=== PATIENT | female | born 1955 | race Caucasian/White ===

== ENCOUNTER 2020-03-09 07:36 | Observation (INO) | payer MEDICARE ==
[~2020-03-09] VITALS: Ht 157.5 cm; Wt 98.4 kg
--- NOTE | ~2020-03-09 | H ---
[address] [address] HISTORY AND PHYSICAL Name: JAD PRASAD Room: [address] Paige MYogesh#: [id number] Admission: 03/09/20 Attend Phys: Luis Hernandez DO Discharge: 03/10/20 Date of : 59 Report #: [id number] THIS REPORT FOR: //name// cc: Tess Szymanski MD, Laurie Dawn MD ~ THIS REPORT FOR: //name// Please refer to the History and Physical performed in the physician's office. By: 0641Medical Records Staff [facility] /BRISEIDA
[~2020-03-09 07:36] MED LIST: ATENOLOL 100MG100 M2 PO; ATENOLOL 50MG T50 M1 PO; ATIVAN1 MG PO; COLACE 100 MG100 MG PO; ENOXAPARIN40 MG/0.1 INJECTION; ESTRACE0.5 MG PO; HYDROCHLOROTH12.5 M1 PO; IRON325; JANTOVEN5 MG PO; LANSOPRAZOLE30 MG PO; LIDODERM 5%1 PATC1 TRANSDERM; LINZESS145 MCG PO; LIPITOR40 MG PO; METHADOSE5 MG PO; NORCO 10-325 T1 EACH PO; PROAIR HFA8.5 GM INH; PROTONIX40 M1 PO; VALTREX 500 MG500 M1 PO; VALTREX1000 MG PO; Vitamin D; XARELTO10 MG PO
[2020-03-09] MEDS ORDERED: ATIVAN0.5 M1 PO (07:59)
[2020-03-09 16:00] VITALS: BP 158/74
--- NOTE | 2020-03-09 17:35 | NUR ---
PATIENT CAME TO THE FLOOR AFTER SURGERY FOR PAIN MANAGEMENT. SHE HAS BEEN DOING WELL AND ONLY MEDICATED FOR PAIN X 1 SINCE GETTING TO THE FLOOR. SHE REQUESTED TO GET HER PROTONIX AT AND I DID NOTIFY PHARMACY OF THIS. SHE IS ALERT AND ORIENTED X 4. GETS UP TO THE BATHROOM WITH STAND BY ASSIST ONLY AND DOES USE HER CALL LIGHT TO MAKE HER NEEDS KNOWN. SHE HAS 4 LAP INCISIONS TO THE ABDOMIN AND THEY ARE CLOSED WITH DERMABOND. ICE PK TO THE ABD. PATIENT IS WATCHING TV AT THIS TIME. SHE DID STATE "I COULD HAVE GONE HOME TODAY BUT ITS TOO LATE NOW."
--- NOTE | 2020-03-09 19:18 | EKG ---
[place] [address] ELECTROCARDIOGRAM REPORT Name: JAD PRASAD [id number] Admission: 03/09/20 Attend Phys: Luis Hernandez DO Discharge: Date of : 59 Date of Service: 03/09/20 0757 Report #: [id number] THIS REPORT FOR: //name// [facility] Test Date: 2020-03-09 Test Time: 07:57:30 Pat Name: JAD PRASAD Department: Room: [facility] Gender: F Double Backer: GOGO : 1955 Requested By: Luis Hernandez Order Number: [id number] Zack MD: Paul Longo Measurements Intervals [place] Rate: 72 P: 52 FL: 173 QRS: 56 QRSD: 94 T: 24 QT: 398 QTc: 436 Interpretive Statements Sinus rhythm Consider left ventricular hypertrophy Compared to ECG 04/02/2017 17:30:26 T-wave abnormality no longer present Electronically Signed On 03-09-2020 17:43:06 CDT by Paul Longo [email or web address] <ELECTRONICALLY SIGNED> By: Paul Longo MD, [facility] 03/09/20 1743 [id number] [id number] Paul Longo MD, [facility] /EPI
[2020-03-09 19:56] VITALS: BP 166/86
--- NOTE | 2020-03-10 06:14 | NUR ---
PATIENT DID NOT REPORT ANY PAIN THROUGH SHIFT. SHE DID RECEIVE HER SCHEDULED METHADONE AT 2009 AND WENT TO SLEEP FOR THE NIGHT. SHE DID NOT REQUEST ANY OTHER PAIN MANAGEMENT AND DID NOT REPORT AND NAUSEA OR VOMITING. SHE IS UP AD CYN AND HAS NO REPORTS OF WORSENING PAIN. WILL CONTINUE TO MONITOR.
[2020-03-10 07:47] VITALS: BP 166/86
[2020-03-10 07:59] VITALS: BP 179/86
[2020-03-10 09:41] VITALS: BP 166/86
--- NOTE | 2020-03-10 10:09 | NUR ---
I JUST FINISHED GOING OVER ALL DISCHARGE INSTRUCTIONS WITH PATIENT. SHE DOES HAVE A PREVIOUSLY SCHEDULED FOLLOW UP WITH DR. WALTERS ON MARCH 16, 2020 AT 1315 AND SHE IS AWARE OF THIS APPOINTMENT. SHE DENIES ANY DISCOMFORT AT THIS TIME. SHE TOOK A SHOWER THIS AM AND IS DRESSED AND READY TO GO HOME. ALL BELONGINGS ARE BAGGED AND READY WE ARE JUST WAITING FOR HER FAMILY TO ARRIVE TO PICK HER UP. ALL QUESTIONS WERE ANSWERED AND PATIENT VERB. UNDERSTANDING.
--- NOTE | 2020-03-10 12:28 | NUR ---
PATIENT WAS DISCHARGED FROM FACILITY VIA WHEELCHAIR TO PRIVATE OWNED VEHICLE AT 1130. SHE DENIED PAIN OR DISCOMFORT AND WANTED TO AMBULATE BUT WE CONVINCED HER TO GO VIA WHEELCHAIR. NO DISTRESS NOTED. SHE DID HAVE ALL PERSONAL BELONGINGS WITH HER. HER SON MET HER UP FRONT AND DROVE HER HOME.
[2020-03-10 12:29] VITALS: BP 166/86
--- NOTE | 2020-03-12 10:07 | PATH ---
[address] [address] PATHOLOGY RPT PROCEDURE Name: JAD CRUM Room: [address] Kim#: [id number] Admission: 03/09/20 Date of : 59 Discharge: 03/10/20 Report #: [id number] Path Case #: [id number] [facility] Accession Number: [id number] . 01 Material submitted: . gallbladder - GALLBLADDER . 01 Clinical history: . Cholecystitis . 02 Diagnosis: Gallbladder, "gallbladder", cholecystectomy: - Chronic cholecystitis. (IRAIS:odalys; 03/11/2020) [facility] 03/11/2020 1242 Local . 02 Electronically signed: . Song Crouch MD, Pathologist NPI- [id number] . 01 Gross description: . The specimen is received in formalin, labeled "Jad Crum, gallbladder" and consists of an intact purple green gallbladder measuring 8.7 x 3.1 x 2.2 cm. The margin is inked. Opening reveals green bile and no stones are present. The mucosa is green and smooth with a wall thickness of 0.1 cm. No lymph nodes or gross lesions are identified. Janitor Caretaker sections are submitted in A1. (CARLY; 03/09/2020) JFQ/JFQ 03/09/2020 2130 Local . 02 Pathologist provided ICD-10: K81.1 . 02 CPT . 721628 Specimen Comment: A courtesy copy of this report has been sent to [phone], [phone] Specimen Comment: [phone] Specimen Comment: Report sent to / DR ZHU Performed at: [id number] [facility] [address], [place], [place] [id number] MD Darshan Cabello MD Phone: [phone] Performed at: [address] [address] [address] [place]eno[place], [place] [id number] MD Myron Holden MD Phone: [phone]
--- NOTE | 2020-03-17 07:21 | OP ---
[address] [address] OPERATIVE REPORT Name: SHANICEJAD XENA Room: [address] Kim#: [id number] Admission: 03/09/20 Attend Phys: Luis Hernandez DO Discharge: 03/10/20 Date of : 59 Report #: [id number] THIS REPORT FOR: //name// cc: Tess Szymanski MD, Laurie Dawn MD ~ THIS REPORT FOR: //name// CC: Luis Szymanski DICTATED BY: Alexa Ortiz DO DATE OF SERVICE: 03/09/2020 Alexa Ortiz DO, PGY2, dictating for Luis Hernandez DO. PRIMARY CARE PHYSICIAN: Tess Szymanski MD PREOPERATIVE DIAGNOSIS: Cholecystitis. POSTOPERATIVE DIAGNOSIS: Cholecystitis. PRIMARY SURGEON: Luis Hernandez DO ANIMAL CARE GIVER: Alexa Ortiz DO, PGY2 PROCEDURE PERFORMED: Laparoscopic cholecystectomy with immunofluorescence imaging and intraoperative cholangiogram with surgeon interpretation of images. ANESTHESIA: General and TAP block. ESTIMATED BLOOD LOSS: 20 mL. SPECIMEN: Gallbladder. COMPLICATIONS: None. INDICATIONS FOR PROCEDURE: The patient is a very pleasant 65-year-old female who presented to our office with complaint of midabdominal pain exacerbated by p.o. intake, specifically spicy and fatty foods. She underwent GI workup, which included an ultrasound, which showed a hydropic gallbladder, no cholelithiasis, but a dilated common bile duct. It was recommended that she undergo laparoscopic cholecystectomy with intraoperative cholangiogram. The procedure, risks, benefits, possible complications to include bleeding, infection, [place] [address] OPERATIVE REPORT Name: JAD PRASAD Room: [address] Paige Alvarez#: [id number] Admission: 03/09/20 Attend Phys: Luis Hernandez, DO Discharge: 03/10/20 Date of : 59 Report #: [id number] to surrounding structures, injury to bile duct, bile leak, need for additional surgery, need for open procedure, risk of anesthesia, and other risks of surgery were discussed with the patient in great detail. She voiced complete understanding and wished to proceed with surgery. DESCRIPTION OF PROCEDURE: Informed consent was obtained. The patient was taken to the operating room and placed supine on the operating room table. General endotracheal anesthesia was induced without difficulty. SCDs were placed on bilateral lower extremities. Preoperative antibiotics were given. Anesthesia performed a TAP block. The abdomen was then prepped and draped in the standard sterile fashion. A timeout was performed to ensure correct patient and procedure. We began by making a 3-cm supraumbilical vertical incision using a #11 blade scalpel. Incision was carried down through the subcutaneous tissues using electrocautery. [place] were used to assist in our dissection further down to the level of the fascia. Fascia was scored with electrocautery. Fascia was grasped between 2 Kochers and elevated. The peritoneum was entered bluntly using a hemostat. A 0-Vicryl stay sutures were placed on either side of our fascial opening in a [id number] fashion. A 5-mm Wily trocar was inserted through our fascial opening. The abdomen was insufflated without difficulty. Camera was inserted and a sweep of the anterior abdominal contents was performed. There were no obvious abnormalities on our initial sweep of the anterior abdominal contents. A subxiphoid 5-mm trocar was inserted under direct visualization. The patient was placed in the reverse Trendelenburg position with the left side down. Two right upper quadrant 5-mm trocars were inserted under direct visualization. The gallbladder had some fairly dense omental adhesions overlying the superior aspect. These were gently taken down using electrocautery. The roofer assistant then grasped the fundus of the gallbladder and retracted it superiorly and anteriorly. The remainder of the omental adhesions overlying the surface of the gallbladder were taken down using electrocautery until we reached the level of Hiren pouch. Hiren pouch was grasped and the peritoneum overlying the gallbladder was scored with electrocautery. The peritoneum along the lateral aspect of the gallbladder was opened up using electrocautery. [place] dissector was also used to bluntly dissect away some of the fatty tissues overlying the cystic duct. Once the cystic duct was fully identified and isolated from all the surrounding tissues, we were ready to perform our cholangiogram. We did use immunofluorescence imaging to ensure that we were able to identify all of our ductal structures. A 5-mm clip vessel operator was used to place a clip on the superior aspect of the cystic duct. Laparoscopic scissors were used to partially transect the cystic duct. A 14-gauge Angiocath was inserted through the abdominal wall and our cholangiogram catheter was inserted into the abdomen through the Angiocath. The cholangiogram catheter was directed into the cystic duct using a [place] dissector. Catheter was then secured in place using another 5-mm clip. Catheter flushed fairly easily with sterile saline. The patient was then flattened out. C-arm was brought in. Initial warehouse specialist images were obtained to ensure we were in the correct position. Once C-arm was positioned correctly, fluoroscopy was used [place] [address] OPERATIVE REPORT Name: JAD PRASAD Room: [address] Paige ManuelaMnuel#: [id number] Admission: 03/09/20 Attend Phys: Luis Hernandez, DO Discharge: 03/10/20 Date of : 59 Report #: [id number] injected. Both hepatic radicles were visualized on cholangiogram. The contrast flowed through the cystic duct into the common bile duct, which did appear to be quite dilated. Contrast continued to flow through the common bile duct and into the duodenum. There did not appear to be any sort of stone or obvious obstruction. Once our cholangiogram was complete, C-arm was backed away. The patient was returned to the reverse Trendelenburg position with the left side down. The clip holding the cholangiogram catheter in place was removed. Cholangiogram catheter was removed. Two wet clips were placed distally on our cystic duct and the cystic duct was then completely transected using laparoscopic scissors. Combination of electrocautery and blunt dissection were used to identify our cystic artery. Cystic artery was in a more posterior position rather than the usual position. It was dissected free from surrounding tissues and also clipped using 5-mm clip vessel operator and then the gallbladder was completely removed from the liver bed using electrocautery ensuring hemostasis along the way. The gallbladder was placed within an EndoCatch bag. The liver edge was elevated, so that we could inspect the liver bed. Suction supervisor continuous weld pipe mill was used to irrigate the right upper quadrant. Electrocautery was used to achieve hemostasis on the liver bed. Clips were reinspected to ensure there was no leak. The patient was then flattened out, 5-mm trocars were removed under direct visualization. The 5-mm Wily trocar and the gallbladder within the EndoCatch bag were removed. Fascia at the supraumbilical incision was closed using 0 Vicryl suture in a peqlth-sb-hjygh fashion. Subcutaneous tissues were approximated using 3-0 Vicryl suture in a simple interrupted and inverted fashion. Skin was closed using 4-0 Monocryl suture in a running subcuticular fashion. The remaining 5-mm trocar sites were closed using 4-0 Monocryl suture in a simple interrupted and inverted fashion. Abdomen was cleansed and dried. Dermabond was applied to each incision. The patient was allowed to awaken in the operating room and was transferred to the PACU in stable condition. <ELECTRONICALLY SIGNED> By: Luis Hernandez DO 03/17/20 0721 1104 [id number] Hernandez DO /nt
== END 2020-03-10 11:30 | disposition home or self-care (01) ==
LOC: M.SUR 07:36 → M.TBA 10:53 → M.3W 10:53 → M.SUR 11:12 → M.3W 12:54 → M.SUR 13:37 → M.3W 03-10 11:30
PROVIDERS: ADMIT Surgery; ATTEND Surgery
DX: Z03.818 Encounter for observation for suspected exposure to other biological agents ruled out (principal); K81.9 Cholecystitis, unspecified; I10 Essential (primary) hypertension